=== PATIENT | male | born 2000 | race African-American/Black ===

== ENCOUNTER 2020-08-03 12:43 | Emergency (ER) | payer SELFPAY ==
[2020-08-03 12:52] VITALS: BP 134/79; PULSE 88; TEMP 98.2; BMI 28.7
--- NOTE | 2020-08-03 13:14 | PDOC ---
History of Present Illness - General Chief Complaint: Chest Pain Stated Complaint: CHEST PAIN Time Seen by Provider: 08/03/20 12:54 History Source: Patient Exam Limitations: No Limitations - History of Present Illness Initial Comments: 08/03/20 13:09 HISTORY OF PRESENT ILLNESS: 20-year-old male denies medical history presents emergency department for evaluation of sharp midsternal chest pain radiating down the sternum to the left side of the chest along the ribs for the past 3-1/2 months. Patient reports the pain is waxing and waning and is currently a 6/10. Patient reports he occasionally feels short of breath but mostly after smoking marijuana. Patient reports chronic marijuana use where he reports "I am always smoking." Patient is unable to identify any aggravating or alleviating factors for his pain. Patient reports he was seen and evaluated at another hospital and told he had costochondritis. No recent travel or sick contacts. PAST MEDICAL HISTORY: Denies past medical history SURGICAL HISTORY: Denies ALLERGIES: No known drug allergies REVIEW OF SYSTEMS General/Constitutional: Denies fever or chills. Denies weakness, weight change. HEENT: Denies change in vision. Denies ear pain or discharge. Denies sore throat. Cardiovascular: See HPI Respiratory: Denies cough, wheezing, or hemoptysis. Gastrointestinal: Denies nausea, vomiting, diarrhea or constipation. Denies rectal bleeding. Genitourinary: Denies dysuria, frequency, or change in urination. Musculoskeletal: Denies joint or muscle swelling or pain. Denies neck or back pain. Skin and breasts: Denies rash or easy bruising. Neurologic: Denies headache, vertigo, loss of consciousness, or loss of sensation. Psychiatric: Denies depression or anxiety. Endocrine: Denies increased thirst. Denies abnormal weight change. Hematologic/Lymphatic: Denies anemia, easy bleeding, or history of blood clots. Allergic/Immunologic: Denies hives or skin allergy. Denies latex allergy. PHYSICAL EXAM General Appearance: Well-appearing, appropriately dressed. No apparent distress, no intoxication. Neck: Supple. Trachea midline. No tenderness, rigidity, carotid bruit, stridor, lymphadenopathy, or thyromegaly. Respiratory/Chest: Lungs CTAB. No shortness of breath, respiratory distress, accessory muscle use. No crackles, rales, rhonchi, stridor, wheezing, dullness. Chest tender along the left side of the sternum following the underside of the ribs to the mid axillary line on the left side. Cardiovascular: RRR. S1, S2. No JVD, murmur, bradycardia, tachycardia. Vascular Pulses: Dorsalis-Pedis (R): 2+, Dorsalis-Pedis (L): 2+ Gastrointestinal/Abdominal: Normal bowel sounds. Abdomen soft, non-distended. No tenderness or rebound tenderness. No organomegaly, pulsatile mass, guarding, hernia, hepatomegaly, splenomegaly. Past History - Medical History Allergies/Adverse Reactions: Allergies Allergy/AdvReac Type Severity Reaction Status Date / Time No Known Allergies Allergy Unverified 08/03/20 12:51 - Psycho-Social/Smoking History Smoking History: Current every day smoker Have you smoked in the past 12 months: Yes Information on smoking cessation initiated: No - Substance Abuse Hx (Audit-C & DAST Scrn) How often the patient has a drink containing alcohol: Never Score: In Men: 4 or > Positive; In Women: 3 or > Positive: 0 Screen Result (Pos requires Nsg. Audit-10AR): Negative In the last yr the pt used illegal drug/Rx for NonMed reason: Yes Score: Yes response is considered Positive: 1 Screen Result (Positive result requires Nsg. DAST-10): Positive *Physical Exam - Vital Signs Last Vital Signs Temp Pulse Resp BP Pulse Ox 98.2 F 88 18 134/79 99 08/03/20 12:46 08/03/20 12:46 08/03/20 12:46 08/03/20 12:46 08/03/20 12:46 ED Treatment Course - RADIOLOGY Radiology Studies Ordered: Category Date Time Status CXR [CHEST PA & LAT] [RAD] Stat Radiology 08/03/20 13:09 Taken Medical Decision Making - Medical Decision Making 08/03/20 13:12 A/P: 20-year-old male with reproducible chest pain for 3-1/2 months EKG performed at triage shows sinus rhythm with rate of 72. Normal intervals present. No ischemic changes present. Pain is reproducible less likely cardiac as well as patient is 20 years old. He denies any Amphetamine or cocaine usage. Chest x-ray Reassess 08/03/20 13:34 Chest x-ray is read by me: Angle sharp. Cardiac silhouette is within normal limits. No focal infiltrates or consolidations are noted. No obvious bony abnormality Discharge home I discussed the physical exam findings, ancillary test results and final diagnoses with the patient. I answered all of the patient's questions. The patient was satisfied with the care received and felt comfortable with the discharge plan and treatment plan. The patient will call their primary care physician within 24 hours to arrange follow-up and will return to the Emergency Department with any new, persistent or worsening symptoms. Portions of this note have been documented using voice recognition software. As a result, errors may occur in the literacy coach process. Effort has been made to correct all grammatical and literacy coach error, but some may have been missed which may produce sporadic inaccurate literacy coach or nonsensical phrases. Discharge - Discharge Information Problems reviewed: Yes Clinical Impression/Diagnosis: Costochondral chest pain Condition: Stable Disposition: HOME - Admission No - Follow up/Referral - Patient Discharge Instructions Patient Printed Discharge Instructions: DI for Costochondritis Additional Instructions: Rest. Your EKG and chest x-ray today were unremarkable. It is important that you follow-up with your primary doctor as your ER visit is incomplete until you do so. Stop smoking marijuana. Drink plenty of fluids. Return to the emergency department for any new or worsening symptoms. Thank you very much for choosing us to provide your emergent healthcare needs. - Post Discharge Activity
--- NOTE | 2020-08-03 15:15 | EKG ---
Test Reason : Blood Pressure : / mmHG Vent. Rate : 072 BPM Atrial Rate : 072 BPM P-R Int : 132 ms QRS Dur : 088 ms QT Int : 330 ms P-R-T Axes : 052 056 036 degrees QTc Int : 361 ms NORMAL SINUS RHYTHM WITH SINUS ARRHYTHMIA Peaked T waves, clinical correlation required NO PREVIOUS ECGS AVAILABLE Confirmed by ZANE CHANG MD ([id number]) on 08/03/2020 3:15:10 PM Referred By: Confirmed By:ZANE CHANG MD
== END 2020-08-03 13:38 | disposition home or self-care (01) ==
LOC: JERFT 12:43
DX: R07.89 Other chest pain (principal)
CPT/HCPCS: 71046-TC-FY; 93005; 93010; 99284-25